=== PATIENT | male | born 1975 | race Caucasian/White ===

== ENCOUNTER 2024-07-26 19:10 | Emergency (ER) | payer BC, SELFPAY ==
[2024-07-26 19:16] VITALS: BP 119/91
[2024-07-26 19:37] LABS: % Basophils 0.3 % (0-2); % Eosinophils 1.8 % (0-6); % Immature Granulocytes 0.3 % (0-0.5); % Lymphocytes 29.6 % (20.5-51.1); % Monocytes 7.8 % (1.7-9.3); % Neutrophils 60.2 % (42.2-75.2); Absolute Eosinophils 0.2 10^3/uL (0-0.7); Absolute Lymphocytes 2.6 10^3/uL (1.2-3.4); Absolute Monocytes 0.7 10^3/uL (0.1-0.6); Absolute Neutrophils 5.2 10^3/uL (1.4-6.5); Hematocrit 43.5 % (39.0-52.0); Hemoglobin 15.4 g/dL (13.0-18.0); Mean Corp Hgb Conc. 35.4 g/dL (33.0-37.0); Mean Corpuscular Hgb 29.1 pg (27.0-31.0); Mean Corpuscular Volume 82.2 fL (80.0-94.0); Mean Platelet Volume 9.5 fL (7.4-10.4); Nucleated Red Blood Cells % 0.5 % (-); Platelet Count 184 10^3/uL (130-400); Red Blood Cell Count 5.29 10^6/uL (4.70-6.10); Red Cell Dist. Width 12.8 % (11.5-14.5); Urine Albumin Negative (Neg - Trace); Urine Bilirubin Negative (Negative); Urine Character Clear (Clear); Urine Color Yellow; Urine Glucose Negative (Negative); Urine Ketone Negative (Negative); Urine Leukocyte Negative (Negative); Urine Nitrite Negative (Negative); Urine Occult Blood Negative (Negative); Urine Specific Gravity 1.025 (<1.030); Urine Urobilinogen Negative (Neg - 1+); White Blood Cell Count 8.7 10^3/uL (4.8-10.8)
[2024-07-26 19:50] LABS: ALT (SGPT) 29 U/L (0-50); AST (SGOT) 24 U/L (17-59); Albumin 5.2 g/dl (3.5-5.0); Alkaline Phosphatase 82 U/L (38-126); Blood Urea Nitrogen 24 mg/dl (9-20); Carbon Dioxide 28 mmol/L (22-30); Chloride 101 mmol/L (98-107); Glucose 96 mg/dl (70-99); Potassium 3.7 mmol/L (3.5-5.1); Sodium 139 mmol/L (135-145); Total Bilirubin 0.9 mg/dl (0.2-1.3); Total Protein 7.4 g/dl (6.3-8.2); eGFR > 60.00
[2024-07-26 20:19] VITALS: BMI 34.8
[2024-07-26 20:20] VITALS: BP 125/92
--- NOTE | 2024-07-26 20:39 | ED.GENMED ---
History of Present Illness
General
Chief Complaint: Flank Pain
Source: patient
Time Seen by Provider: 07/26/24 20:15
History of Present Illness
History of Present Illness:
49-year-old male with past medical history of hypertension presenting to the emergency department for evaluation of bilateral flank pain, 1 week ago it started on the right, 1 day ago on the left and with a sensation of incomplete bladder emptying
and urinary urgency. Patient denies any dysuria, hematuria, nausea or vomiting, fever/chills/rigors or any other concerns. Notes about 1 year ago he saw urologist due to the urinary frequency/urgency symptoms and was started on sildenafil,
ultimately switched over to Myrbetriq which he continues to take. Patient is also denying any pain to the testicles, urethral discharge, abdominal pain or any other concerns.
Past History
Past History
ED Past Medical History: HTN
ED Past Surgical History: Appendectomy, Orthopedic and Tonsilectomy
Social History
Tobacco: Non-smoker
Alcohol: None
Drug: None
Personal:
Living: with family
Review of Systems
Review of Systems
All Other Systems: ROS reviewed and negative except as documented in HPI and ROS
Phy Exam
Physical Exam
Physical Exam:
GENERAL: Alert , in no apparent distress
EYE: clear conjunctiva b/l
HEAD: NCAT
ENT: mmm.
CARDIAC: Regular rate and rhythm .
LUNGS: Clear breath sounds bilaterally, no acute respiratory distress, no wheezes/rales/rhonchi
ABDOMEN: Soft, without focal tenderness, no r/g, no cvat
NEUROLOGICAL: Alert and oriented
SKIN: Warm and dry, skin intact.
MUSCULOSKELETAL: well perfused.
PSYCH: Normal and appropriate interaction.
Scores
Heart Failure Risk
Heart Failure Risk Score: Not Applicable
Heart Score for Chest Pain Patients
STEMI patient?: Not applicable
Withdrawal Assessment of Alcohol
Withdrawal Assessment Completed?: Not applicable
Course
Orders/Labs/Results
Orders:
Orders
07/26/24 19:27
Complete Blood Count/With Diff Urgent
Comprehensive Metabolic Panel Urgent
Urinalysis Reflex To Culture Urgent
Date Specimen was Collected: 07/26/24
Time Specimen was Collected: 19:16
07/26/24 20:33
CT Abd/pel Without Iv Or Oral Urgent
Comment:
Reason For Exam: flank pain, urinary frequency
Abnormal Lab Results
07/26/24
19:27
Absolute Monos (auto) 0.7 H 10^3/uL
(0.1-0.6)
BUN 24 H mg/dl
(9-20)
Albumin 5.2 H g/dl
(3.5-5.0)
07/26/24 19:27
07/26/24 19:27
Vital Signs
Initial and Last Documented VS:
Initial Vital Signs
Temp Pulse Resp BP Pulse Ox
98.5 F 84 16 119/91 98
07/26/24 19:16 07/26/24 19:16 07/26/24 19:16 07/26/24 19:16 07/26/24 19:16
Last Documented Vital Signs
Temp Pulse Resp BP Pulse Ox
98.4 F 84 18 125/92 96
07/26/24 20:20 07/26/24 20:20 07/26/24 20:20 07/26/24 20:20 07/26/24 20:20
MDM/Problems Addressed
Differential Diagnosis Includes:
UTI, pyelonephritis, renal/ureteral colic, BPH, ureteral stricture, medication side effect
MDM/Problems Addressed:
49-year-old male presenting to the ER for evaluation of bilateral flank pain and urinary urgency/frequency. States he feels that he is not emptying completely. Symptoms seem to be worse at nighttime. Exam is overall reassuring. Labs and urine
were initiated on arrival which are largely unremarkable. Will obtain CT scan to evaluate for possible renal/ureteral colic secondary to kidney stone however given the bilateral nature of his pain on the little less suspicious for this. Possible
side effects from Myrbetriq. Anticipate patient will need outpatient follow-up with urology.
*Radiology
Radiology exam reviewed: radiology read reviewed
*Pulse Oximetry
Patient hypoxic: no
*Critical Care Note
Total Time (30-74mins, 75-104mins- exclusive of procedures): Not Applicable
Comment
Comment:
Prior to urinating patient had 90 mL of urine within bladder. Postvoid was 0 mL.
Patient Management
Escalation/DeEscalation of care consider admission/obs:
Patient CT scan without any acute intra-abdominal findings. Mild diverticulosis discussed with the patient. Advised to increase fiber in diet. Encouraged him to contact his urologist tomorrow morning. Patient is otherwise stable for discharge
home
ED Attending Note
-
Portions of this chart may have been created with voice recognition software.� Occasional wrong word or��sound alike� substitutions may have occurred due to the inherent limitations of voice recognition software.
Discharge Plan
Departure
Patient Disposition: Home (Routine Discharge)
Date of Disposition: 07/26/24
Time of Disposition: 21:56
Patient with high blood pressure during this ER visit?: No
Discharge Problem:
Bilateral flank pain
Instructions: Flank Pain (DC)
Referrals:
Nito Ramsey DO [Family Provider] -
Interventions
Interventions:
*Risk Screen - Suicide Last Done: 07/26/24 19:19
*General Assessment Last Done: 07/26/24 19:19
*Neglect/Abuse Screening Last Done: 07/26/24 19:19
*ED COVID-19 Vaccine History Last Done: 07/26/24 20:20
JN-Crqkod-Jqhxekdscn Assessment Last Done: 07/26/24 20:23
ED-Male Genitourinary Assessment Last Done: 07/26/24 20:23
Discharge Date and Time
Print Language: UGANDAN
== END 2024-07-26 22:08 | disposition home or self-care (01) ==
LOC: EMR 19:10
PROVIDERS: Student in an Organized Health Care Education/Training Program; EMERGENCY PHYSICIAN Emergency Medicine; FAMILY PHYSICIAN Family Medicine
DX: R10.9 Unspecified abdominal pain (principal); K57.90 Diverticulosis of intestine, part unspecified, without perforation or abscess without bleeding; I10 Essential (primary) hypertension; Z90.49 Acquired absence of other specified parts of digestive tract
CPT/HCPCS: 99284; 74176; 80053; 81003; 85025